=== PATIENT | male | born 1960 | race Asian ===

== ENCOUNTER 2017-01-10 08:44 | Inpatient (IN) | payer OTHER, SELFPAY ==
[~2017-01-10] VITALS: Ht 167.6 cm; Wt 91.5 kg
[~2017-01-10 08:44] MED LIST: ASPI81TA2 PO
[2017-01-10] MEDS ORDERED: ATEN25 PO (09:15)
[2017-01-10] MEDS ORDERED: ENAL1TAB10 PO (09:15)
[2017-01-10] MEDS ORDERED: ACET-66 PO (09:15)
[2017-01-10] MEDS ORDERED: KETOROLAC TROMETHAMINE 30 MG/ML VIAL IVP ONE (09:30)
[2017-01-10 09:43] LABS: BASOPHILS % (AUTO) 0.2 % (0.0-2.0); EOSINOPHILS % (AUTO) 2.4 % (1.0-6.0); HEMATOCRIT 45.9 % (41-53); HEMOGLOBIN 14.9 g/dL (13.5-17.5); LYMPHOCYTES # (AUTO) 3.3 K/uL (1.0-4.8); LYMPHOCYTES % (AUTO) 27.9 % (22.0-44.0); MEAN CORPUSCULAR HGB CONC 32.5 G/dL (31.0-37.0); MEAN CORPUSCULAR VOLUME 92 fL (80-100); MONOCYTES # (AUTO) 0.9 K/uL (0.1-1.0); MONOCYTES % (AUTO) 7.5 % (2.0-9.0); NEUTROPHILS # (AUTO) 7.3 K/uL (1.8-7.7); PLATELET COUNT (AUTO) 189 K/uL (150-450); RED BLOOD CELL COUNT(AUTO) 4.97 MIL/uL (4.50-5.90); RED CELL DISTRIBUTION WIDTH 13.3 % (11.5-14.5); WHITE BLOOD COUNT (AUTO) 11.8 K/uL (4.5-11.0)
[2017-01-10 09:53] LABS: ANION GAP 9 mmol/L (8-16); CALCIUM, TOTAL 8.7 mg/dL (8.8-10.5); CARBON DIOXIDE 28 mmol/L (22-29); CHLORIDE 103 mmol/L (98-107); CREATININE 1.12 mg/dL (0.60-1.30); GLOMERULAR FILTR. RATE CALC > 60 mL/min (>60); POTASSIUM 3.4 mmol/L (3.5-5.1); SODIUM SERUM 140 mmol/L (136-145); UREA NITROGEN, BLOOD 15 mg/dL (7-18)
[2017-01-10 09:59] LABS: ALANINE AMINOTRANSFERASE 38 U/L (12-78); ALBUMIN 3.8 g/dL (3.4-5.0); ASPARTATE AMINOTRANSFERASE 25 U/L (15-37); BILIRUBIN,TOTAL 0.7 mg/dL (0.1-1.0); TOTAL PROTEIN, SERUM 8.4 g/dL (6.4-8.2)
[2017-01-10 10:55] LABS: APPEARANCE,URINE CLEAR (CLEAR); GLUCOSE, URINE (UA) NEGATIVE (NEGATIVE); KETONES,URINE NEGATIVE (NEGATIVE); LEUKOCYTE ESTERASE ,URINE NEGATIVE (NEGATIVE); OCCULT BLOOD,URINE SMALL (NEGATIVE); PROTEIN,URINE NEGATIVE (NEGATIVE)
[2017-01-10] MEDS ORDERED: HydrALAZINE HCL 20 MG/ML VIAL IVP ONE (11:00)
[2017-01-10] MEDS ORDERED: ASPIRIN 81 MG CHEWABLE TABLET PO ONE (11:00)
[2017-01-10] MEDS ORDERED: NITROGLYCERIN 2% (1 GM=INCH) PACKET TP ONE (11:00)
[2017-01-10 11:03] LABS: ADD UA MICROSCOPIC YES
[2017-01-10 11:04] LABS: RBC,URINE 0-2 /HPF (0-2); SQUAMOUS EPITHELIAL CELL,UR Rare /LPF (None Seen); WBC,URINE 0-2 /HPF (0-5)
[2017-01-10] MEDS ORDERED: MAGNESIUM HYDROXIDE SUSPENSION 30 ML UDCUP PO PRN (11:30)
[2017-01-10] MEDS ORDERED: OxyCODONE HCL/ACETAMINOPHEN 5-325 MG TABLET PO PRN (11:30)
[2017-01-10] MEDS ORDERED: ACETAMINOPHEN 325 MG TABLET PO PRN (11:30)
[2017-01-10] MEDS ORDERED: CloNIDine HCL 0.1 MG TABLET PO PRN (11:30)
[2017-01-10] MEDS ORDERED: POTASSIUM CHL 10 MEQ/WATER 50 ML IV PRN (11:45)
[2017-01-10] MEDS ORDERED: POTASSIUM CHLORIDE 20 MEQ ER TABLET PO PRN (11:45)
[2017-01-10] MEDS: LOSARTAN POTASSIUM 25 MG TABLET PO SCH ×2 (11:47→21:42)
[2017-01-10] MEDS: METOPROLOL TARTRATE 25 MG TABLET PO SCH ×2 (11:47→20:10)
[2017-01-10] MEDS: AmLODIPine BESYLATE 10 MG TABLET PO SCH (11:47)
[2017-01-10 13:24] VITALS: BP 158/97
[2017-01-10] MEDS ORDERED: PNEUMOCOCCAL VACCINE POLYVALENT 0.5 ML VIAL [PPSV23] IM ONE (14:45)
[2017-01-10 15:33] VITALS: BP 139/80
[2017-01-10] MEDS: HEPARIN SODIUM,PORCINE 5,000 UNITS/ML VIAL SQ SCH ×2 (16:31→23:35)
[2017-01-10 19:20] VITALS: BP 139/85
[2017-01-10] MEDS: DOCUSATE SODIUM 100 MG CAPSULE PO SCH (20:10)
[2017-01-10 21:40] VITALS: BP 148/82
[2017-01-10 23:42] VITALS: BP 134/95
[2017-01-11] MEDS ORDERED: HEPARIN SODIUM,PORCINE 5,000 UNITS/ML VIAL IVP PRN ×2 (02:00)
[2017-01-11 02:29] LABS: BASOPHILS # (AUTO) 0.05 K/uL (0.00-0.20); BASOPHILS % (AUTO) 0.5 % (0.0-2.0); EOSINOPHILS # (AUTO) 0.36 K/uL (0.00-0.70); EOSINOPHILS % (AUTO) 3.19 % (1.0-6.0); HEMATOCRIT 44.9 % (41-53); HEMOGLOBIN 14.7 g/dL (13.5-17.5); LYMPHOCYTES # (AUTO) 3.9 K/uL (1.0-4.8); LYMPHOCYTES % (AUTO) 34.2 % (22.0-44.0); MEAN CORPUSCULAR HEMOGLOBIN 30.5 pg (26.0-34.0); MEAN CORPUSCULAR HGB CONC 32.8 G/dL (31.0-37.0); MEAN CORPUSCULAR VOLUME 93 fL (80-100); MONOCYTES % (AUTO) 9.1 % (2.0-9.0); PLATELET COUNT (AUTO) 199 K/uL (150-450); RED BLOOD CELL COUNT(AUTO) 4.83 MIL/uL (4.50-5.90); RED CELL DISTRIBUTION WIDTH 13.5 % (11.5-14.5); WHITE BLOOD COUNT (AUTO) 11.4 K/uL (4.5-11.0)
[2017-01-11 02:31] LABS: PROTHROMBIN TIME 10.3 SEC (9.4-11.6)
[2017-01-11] MEDS: HEPARIN SODIUM 25000 UNITS/D5W 250 ML IV PRN ×2 (02:55→21:56)
[2017-01-11 04:48] VITALS: BP 145/93
[2017-01-11 07:25] VITALS: BP 157/100
[2017-01-11] MEDS: DOCUSATE SODIUM 100 MG CAPSULE PO SCH ×2 (08:40→20:26)
[2017-01-11] MEDS: ASPIRIN 81 MG CHEWABLE TABLET PO SCH (08:40)
[2017-01-11] MEDS: LOSARTAN POTASSIUM 25 MG TABLET PO SCH ×2 (08:40→20:26)
[2017-01-11] MEDS: AmLODIPine BESYLATE 10 MG TABLET PO SCH (08:41)
[2017-01-11] MEDS: PANTOPRAZOLE SODIUM 40 MG DR TABLET PO SCH (08:41)
[2017-01-11] MEDS: METOPROLOL TARTRATE 25 MG TABLET PO SCH (08:41)
[2017-01-11 12:01] VITALS: BP 169/100
[2017-01-11 13:00] VITALS: BP 138/73
[2017-01-11 15:05] VITALS: BP 129/79
[2017-01-11 19:23] VITALS: BP 130/82
[2017-01-11] MEDS: METOPROLOL TARTRATE 50 MG TABLET PO SCH (20:26)
[2017-01-12 00:01] VITALS: BP 149/95
[2017-01-12 04:39] VITALS: BP 132/88
[2017-01-12 06:10] LABS: BASOPHILS % (AUTO) 0.4 % (0.0-2.0); EOSINOPHILS % (AUTO) 2.9 % (1.0-6.0); HEMATOCRIT 44.6 % (41-53); HEMOGLOBIN 14.8 g/dL (13.5-17.5); LYMPHOCYTES # (AUTO) 4.7 K/uL (1.0-4.8); LYMPHOCYTES % (AUTO) 35.6 % (22.0-44.0); MEAN CORPUSCULAR HEMOGLOBIN 30.7 pg (26.0-34.0); MEAN CORPUSCULAR HGB CONC 33.2 G/dL (31.0-37.0); MEAN CORPUSCULAR VOLUME 93 fL (80-100); MONOCYTES # (AUTO) 1.1 K/uL (0.1-1.0); NEUTROPHILS % (AUTO) 53.1 % (40.0-70.0); PLATELET COUNT (AUTO) 193 K/uL (150-450); RED BLOOD CELL COUNT(AUTO) 4.82 MIL/uL (4.50-5.90); RED CELL DISTRIBUTION WIDTH 13.6 % (11.5-14.5); WHITE BLOOD COUNT (AUTO) 13.1 K/uL (4.5-11.0)
[2017-01-12 06:20] LABS: PROTHROMBIN TIME 10.7 SEC (9.4-11.6)
[2017-01-12 07:14] VITALS: BP 148/85
[2017-01-12] MEDS: DOCUSATE SODIUM 100 MG CAPSULE PO SCH (08:29)
[2017-01-12] MEDS: LOSARTAN POTASSIUM 25 MG TABLET PO SCH (08:29)
[2017-01-12] MEDS: METOPROLOL TARTRATE 50 MG TABLET PO SCH (08:29)
[2017-01-12] MEDS: PANTOPRAZOLE SODIUM 40 MG DR TABLET PO SCH (08:30)
[2017-01-12] MEDS: AmLODIPine BESYLATE 10 MG TABLET PO SCH (08:31)
[2017-01-12] MEDS: ASPIRIN 81 MG CHEWABLE TABLET PO SCH (08:31)
[2017-01-12] MEDS ORDERED: ATORVASTATIN CALCIUM 40 MG TABLET PO SCH (09:00)
[2017-01-12] MEDS ORDERED: CLOPIDOGREL BISULFATE 75 MG TABLET PO SCH (09:00)
[2017-01-12] MEDS ORDERED: ISOSORBIDE MONONITRATE 30 MG ER TABLET PO SCH (09:00)
[2017-01-12] MEDS ORDERED: METO50 PO (10:50)
[2017-01-12] MEDS ORDERED: ATOR40TA28 PO (10:50)
[2017-01-12] MEDS ORDERED: CLOP75 PO (10:50)
[2017-01-12] MEDS ORDERED: AMLO-512 PO (10:51)
[2017-01-12] MEDS ORDERED: ISOS30TA6 PO (10:51)
[2017-01-12] MEDS ORDERED: LOSA25TA21 PO (10:52)
[2017-01-12 11:36] VITALS: BP 117/52
== END 2017-01-12 13:15 | disposition home or self-care (01) | DRG 281 ==
LOC: EMS 08:46 → 5S 11:45
PROVIDERS: ADMIT Internal Medicine; ATTEND Internal Medicine
PROC: 3E0234Z Introduction of Serum, Toxoid and Vaccine into Muscle, Percutaneous Approach (ICD-10-PCS; principal; 2017-01-10)
DX: I21.4 Non-ST elevation (NSTEMI) myocardial infarction (principal); I42.2 Other hypertrophic cardiomyopathy; I10 Essential (primary) hypertension; I16.0 Hypertensive urgency; E66.9 Obesity, unspecified; Z91.19 Patient's noncompliance with other medical treatment and regimen; F17.200 Nicotine dependence, unspecified, uncomplicated; Z87.442 Personal history of urinary calculi; Z68.32 Body mass index [BMI] 32.0-32.9, adult; Z79.82 Long term (current) use of aspirin; Z79.899 Other long term (current) drug therapy; Z23 Encounter for immunization
CPT/HCPCS: 82271; 84132; 90471; 93005; 93306; 96374; 96375; 99291; J0360; J1644; J1885

== ENCOUNTER 2017-02-09 21:14 | Emergency (ER) | payer OTHER ==
[~2017-02-09] VITALS: Ht 165.1 cm; Wt 86.4 kg
[~2017-02-09 21:14] MED LIST changes: +AMLO-512 PO; +ATOR40TA28 PO; +CLOP75 PO; +ISOS30TA6 PO; +LOSA25TA21 PO; +METO50 PO
[2017-02-09] MEDS ORDERED: PHENYLEPHRINE HCL 0.5% 15 ML NASAL SPRAY NASAL ONE (23:00)
[2017-02-10 02:06] VITALS: BP 132/74
[2017-02-11] MEDS ORDERED: CEPH500 PO (05:24)
== END 2017-02-10 02:25 | disposition home or self-care (01) ==
LOC: EMS 21:15
DX: R04.0 Epistaxis (principal); I10 Essential (primary) hypertension; Z79.82 Long term (current) use of aspirin
CPT/HCPCS: 30901; 99284

== ENCOUNTER 2017-02-11 04:50 | Inpatient (IN) | payer OTHER ==
[~2017-02-11] VITALS: Ht 165.1 cm; Wt 91.3 kg
[2017-02-11] MEDS ORDERED: CEPH500 PO (05:24)
[2017-02-11 05:38] LABS: BASOPHILS % (AUTO) 0.4 % (0.0-2.0); EOSINOPHILS % (AUTO) 4.2 % (1.0-6.0); HEMATOCRIT 39.4 % (41-53); HEMOGLOBIN 13.7 g/dL (13.5-17.5); LYMPHOCYTES # (AUTO) 1.9 K/uL (1.0-4.8); LYMPHOCYTES % (AUTO) 25.2 % (22.0-44.0); MEAN CORPUSCULAR HEMOGLOBIN 31.5 pg (26.0-34.0); MEAN CORPUSCULAR HGB CONC 34.7 G/dL (31.0-37.0); MEAN CORPUSCULAR VOLUME 91 fL (80-100); MONOCYTES # (AUTO) 0.7 K/uL (0.1-1.0); MONOCYTES % (AUTO) 9.6 % (2.0-9.0); NEUTROPHILS # (AUTO) 4.6 K/uL (1.8-7.7); NEUTROPHILS % (AUTO) 60.6 % (40.0-70.0); PLATELET COUNT (AUTO) 197 K/uL (150-450); RED BLOOD CELL COUNT(AUTO) 4.34 MIL/uL (4.50-5.90); RED CELL DISTRIBUTION WIDTH 12.7 % (11.5-14.5); WHITE BLOOD COUNT (AUTO) 7.6 K/uL (4.5-11.0)
[2017-02-11 05:46] LABS: PROTHROMBIN TIME 10.6 SEC (9.4-11.6)
[2017-02-11 05:52] LABS: ALBUMIN 3.8 g/dL (3.4-5.0); BILIRUBIN,TOTAL 0.3 mg/dL (0.1-1.0); CALCIUM, TOTAL 8.3 mg/dL (8.8-10.5); CREATININE 1.26 mg/dL (0.60-1.30); POTASSIUM 3.2 mmol/L (3.5-5.1); TOTAL PROTEIN, SERUM 8.3 g/dL (6.4-8.2)
[2017-02-11] MEDS ORDERED: METOPROLOL TARTRATE 5 MG/5 ML VIAL IVP ONE (08:45)
[2017-02-11] MEDS ORDERED: ASPIRIN 325 MG TABLET PO ONE (08:45)
[2017-02-11] MEDS ORDERED: HEPARIN SODIUM 25000 UNITS/D5W 250 ML IV PRN (08:47)
[2017-02-11] MEDS ORDERED: 0.9% SODIUM CHLORIDE 10 ML SYRINGE IVP PRN (09:00)
[2017-02-11] MEDS ORDERED: ONDANSETRON HCL 4 MG/2 ML VIAL IVP PRN (09:00)
[2017-02-11] MEDS ORDERED: HEPARIN SODIUM,PORCINE 5,000 UNITS/ML VIAL IVP PRN ×4 (09:00→22:45)
[2017-02-11] MEDS ORDERED: HEPARIN SODIUM,PORCINE 5,000 UNITS/ML VIAL IVP ONE ×2 (09:00→22:45)
[2017-02-11] MEDS ORDERED: ACETAMINOPHEN 325 MG TABLET PO PRN ×2 (09:00→12:30)
[2017-02-11 09:26] LABS: PROTHROMBIN TIME 10.7 SEC (9.4-11.6)
[2017-02-11] MEDS ORDERED: MORPHINE SULFATE 4 MG/ML SYRINGE IVP PRN (12:30)
[2017-02-11] MEDS ORDERED: MAGNESIUM HYDROXIDE SUSPENSION 30 ML UDCUP PO PRN (12:30)
[2017-02-11] MEDS ORDERED: POTASSIUM CHL 10 MEQ/WATER 50 ML IV PRN ×2 (12:30)
[2017-02-11] MEDS ORDERED: OxyCODONE HCL/ACETAMINOPHEN 5-325 MG TABLET PO PRN (12:30)
[2017-02-11] MEDS ORDERED: POTASSIUM CHLORIDE 20 MEQ ER TABLET PO PRN ×2 (12:30)
[2017-02-11] MEDS ORDERED: ALBUTEROL SULFATE 2.5 MG/0.5 ML NEB SOLUTION NEB PRN (12:30)
[2017-02-11] MEDS: PANTOPRAZOLE SODIUM 40 MG DR TABLET PO SCH (12:42)
[2017-02-11] MEDS: LISINOPRIL 5 MG TABLET PO SCH (12:42)
[2017-02-11] MEDS: METOPROLOL TARTRATE 25 MG TABLET PO SCH ×2 (12:42→20:45)
[2017-02-11] MEDS: ATORVASTATIN CALCIUM 40 MG TABLET PO SCH (12:42)
[2017-02-11 14:59] VITALS: BP 139/82
[2017-02-11 19:29] VITALS: BP 130/72
[2017-02-11] MEDS: DOCUSATE SODIUM 100 MG CAPSULE PO SCH (20:45)
[2017-02-11 23:22] VITALS: BP 135/79
[2017-02-11] MEDS: HEPARIN SODIUM 25000 UNITS/D5W 250 ML IV PRN (23:43)
[2017-02-12] VITALS (7 sets, daily range): BP systolic 110–160; BP diastolic 61–89
[2017-02-12 07:49] LABS: BASOPHILS % (AUTO) 0.4 % (0.0-2.0); EOSINOPHILS % (AUTO) 3.7 % (1.0-6.0); HEMATOCRIT 38.4 % (41-53); HEMOGLOBIN 13.3 g/dL (13.5-17.5); LYMPHOCYTES # (AUTO) 3.6 K/uL (1.0-4.8); LYMPHOCYTES % (AUTO) 34.1 % (22.0-44.0); MEAN CORPUSCULAR HEMOGLOBIN 31.5 pg (26.0-34.0); MEAN CORPUSCULAR HGB CONC 34.5 G/dL (31.0-37.0); MEAN CORPUSCULAR VOLUME 91 fL (80-100); MONOCYTES # (AUTO) 0.8 K/uL (0.1-1.0); MONOCYTES % (AUTO) 7.4 % (2.0-9.0); NEUTROPHILS # (AUTO) 5.7 K/uL (1.8-7.7); NEUTROPHILS % (AUTO) 54.4 % (40.0-70.0); PLATELET COUNT (AUTO) 196 K/uL (150-450); RED CELL DISTRIBUTION WIDTH 13.1 % (11.5-14.5); WHITE BLOOD COUNT (AUTO) 10.5 K/uL (4.5-11.0)
[2017-02-12] MEDS: DOCUSATE SODIUM 100 MG CAPSULE PO SCH ×2 (08:07→21:11)
[2017-02-12] MEDS: METOPROLOL TARTRATE 25 MG TABLET PO SCH ×2 (08:07→21:11)
[2017-02-12] MEDS: PANTOPRAZOLE SODIUM 40 MG DR TABLET PO SCH (08:08)
[2017-02-12] MEDS: ATORVASTATIN CALCIUM 40 MG TABLET PO SCH (08:08)
[2017-02-12] MEDS: LISINOPRIL 5 MG TABLET PO SCH (08:08)
[2017-02-12] MEDS: HEPARIN SODIUM 25000 UNITS/D5W 250 ML IV PRN (08:12)
[2017-02-12] MEDS ORDERED: SESTAMIBI TC99M/UD ISOTOPE 1 EA INJ INJ ONE ×2 (11:05→13:40)
[2017-02-12] MEDS ORDERED: REGADENOSON 0.4 MG/5 ML PF SYRINGE IVP ONE ×2 (12:00→13:40)
[2017-02-12] MEDS: ASPIRIN 81 MG CHEWABLE TABLET PO SCH (12:15)
[2017-02-13 00:27] VITALS: BP 128/75
[2017-02-13 04:26] VITALS: BP 140/75
[2017-02-13 07:27] VITALS: BP 153/81
[2017-02-13] MEDS: METOPROLOL TARTRATE 25 MG TABLET PO SCH (08:32)
[2017-02-13] MEDS: LISINOPRIL 5 MG TABLET PO SCH (08:33)
[2017-02-13] MEDS: DOCUSATE SODIUM 100 MG CAPSULE PO SCH (08:33)
[2017-02-13] MEDS: PANTOPRAZOLE SODIUM 40 MG DR TABLET PO SCH (08:33)
[2017-02-13] MEDS: ASPIRIN 81 MG CHEWABLE TABLET PO SCH (08:33)
[2017-02-13] MEDS: ATORVASTATIN CALCIUM 40 MG TABLET PO SCH (08:33)
[2017-02-13 11:38] VITALS: BP 132/73
[2017-02-13] MEDS ORDERED: LISI10TA7 PO (12:37)
[2017-02-13] MEDS ORDERED: METO-325 PO (12:37)
[2017-02-13] MEDS ORDERED: ATOR20TA86 PO (12:38)
== END 2017-02-13 13:38 | disposition home or self-care (01) | DRG 282 ==
LOC: EMS 04:53 → 5N 13:15
PROVIDERS: ADMIT Internal Medicine; ATTEND Internal Medicine
DX: I21.4 Non-ST elevation (NSTEMI) myocardial infarction (principal); E66.9 Obesity, unspecified; E78.5 Hyperlipidemia, unspecified; F17.210 Nicotine dependence, cigarettes, uncomplicated; I10 Essential (primary) hypertension; E78.00 Pure hypercholesterolemia, unspecified; Z83.3 Family history of diabetes mellitus; Z82.49 Family history of ischemic heart disease and other diseases of the circulatory system; Z79.82 Long term (current) use of aspirin; Z79.02 Long term (current) use of antithrombotics/antiplatelets; Z79.899 Other long term (current) drug therapy; Z68.33 Body mass index [BMI] 33.0-33.9, adult
CPT/HCPCS: 78452; 84132; 87081; 93005; 93017; 93306; 96365; 96366; 96375; 99291; A9500; J1644; J2785; J3490

== ENCOUNTER 2019-05-21 10:46 | Emergency (ER) | payer OTHER ==
[~2019-05-21] VITALS: Ht 167.6 cm; Wt 90.5 kg
[~2019-05-21 10:46] MED LIST changes: -AMLO-512 PO; -ASPI81TA2 PO; +ATOR20TA86 PO; -ATOR40TA28 PO; -CLOP75 PO; -ISOS30TA6 PO; +LISI10TA7 PO; -LOSA25TA21 PO; +METO-391 PO; -METO50 PO
[2019-05-21] MEDS ORDERED: AMLO5TAB9 PO (11:02)
[2019-05-21] MEDS ORDERED: IBUPROFEN 800 MG TABLET PO ONE (12:30)
[2019-05-21] MEDS ORDERED: METHOCARBAMOL 500 MG TABLET PO ONE (12:30)
[2019-05-21] MEDS ORDERED: LIDOCAINE 5% TRANSDERMAL PATCH TD ONE (12:30)
[2019-05-21 13:05] LABS: APPEARANCE,URINE CLEAR (CLEAR); BILIRUBIN,URINE NEGATIVE (NEGATIVE); GLUCOSE, URINE (UA) NEGATIVE (NEGATIVE); KETONES,URINE NEGATIVE (NEGATIVE); LEUKOCYTE ESTERASE ,URINE NEGATIVE (NEGATIVE); NITRATE,URINE NEGATIVE (NEGATIVE); OCCULT BLOOD,URINE SMALL (NEGATIVE); PROTEIN,URINE NEGATIVE (NEGATIVE); UROBILINOGEN,URINE 0.2 mg/dL (<=1.0)
[2019-05-21 13:13] LABS: BACTERIA,URINE None Seen /HPF (None Seen); SQUAMOUS EPITHELIAL CELL,UR Rare /LPF (None Seen); WBC,URINE 0-2 /HPF (0-5)
[2019-05-21 14:09] VITALS: BP 154/80
== END 2019-05-21 14:45 | disposition home or self-care (01) ==
LOC: EMS 10:47
DX: M54.5 Low back pain (principal); E78.00 Pure hypercholesterolemia, unspecified; E78.5 Hyperlipidemia, unspecified; I10 Essential (primary) hypertension; F17.210 Nicotine dependence, cigarettes, uncomplicated; Z79.899 Other long term (current) drug therapy; Z98.890 Other specified postprocedural states
CPT/HCPCS: 76770

== ENCOUNTER 2019-12-30 09:39 | Emergency (ER) | payer OTHER ==
[~2019-12-30] VITALS: Ht 167.6 cm; Wt 81.8 kg
[~2019-12-30 09:39] MED LIST changes: +AMLO5TAB9 PO
[2019-12-30] MEDS ORDERED: AMLO10TA7 PO (09:43)
[2019-12-30] MEDS ORDERED: METO25 PO (09:43)
[2019-12-30] MEDS ORDERED: ALLO300 PO (09:43)
[2019-12-30] MEDS ORDERED: KETOROLAC TROMETHAMINE 30 MG/ML VIAL IM ONE (10:30)
[2019-12-30] MEDS ORDERED: LIDOCAINE 5% TRANSDERMAL PATCH TD ONE (10:30)
[2019-12-30 11:34] VITALS: BP 157/89
== END 2019-12-30 11:44 | disposition home or self-care (01) ==
LOC: EMS 09:45
DX: S70.01XA Contusion of right hip, initial encounter (principal); I10 Essential (primary) hypertension; E78.00 Pure hypercholesterolemia, unspecified; F17.210 Nicotine dependence, cigarettes, uncomplicated; W19.XXXA Unspecified fall, initial encounter; Y93.89 Activity, other specified; Y92.89 Other specified places as the place of occurrence of the external cause; Y99.8 Other external cause status
CPT/HCPCS: 73502; 96372; 99283; J1885